=== PATIENT | female | born 1990 | race Two or more races ===

== ENCOUNTER 2022-09-24 14:40 | Emergency (ER) | payer OTHER ==
[~2022-09-24] VITALS: Ht 172.7 cm; Wt 87.5 kg
== END 2022-09-24 19:19 | disposition home or self-care (01) ==
LOC: ER 14:40
DX: B34.8 Other viral infections of unspecified site (principal)

== ENCOUNTER 2023-03-05 05:59 | Emergency (ER) | payer OTHER ==
[~2023-03-05] VITALS: Ht 152.4 cm; Wt 86.6 kg
== END 2023-03-05 11:14 | disposition home or self-care (01) ==
LOC: ER 05:59
DX: R00.2 Palpitations (principal)